=== PATIENT | female | born 1995 | race Caucasian/White ===

== ENCOUNTER 2019-03-30 12:50 | Emergency (ER) | payer SELFPAY ==
[2019-03-30] MEDS ORDERED: ONDANSETRON HCL INJ/PF 4 MG/2 ML SDV IV ONE (14:49)
[2019-03-30] MEDS ORDERED: NORMAL SALINE 1000 ML 1,000 ML IV ONE (14:50)
--- NOTE | 2019-03-30 14:51 | ER Document Report ---
ED Medical Screen (RME) - General Chief Complaint: Abdominal Pain Stated Complaint: UPPER ABDOMINAL PAIN/SHORTNESS OF BREATHE Time Seen by Provider: 03/30/19 14:48 Primary Care Provider: GILDARDO GIBBONS MD [Primary Care Provider] - Follow up as needed TRAVEL OUTSIDE OF THE [place] IN LAST 30 DAYS: No - HPI Notes: 03/30/19 14:50 Patient is a 24-year-old female with a history of lupus who presents complaint of nausea, vomiting, diarrhea, and epigastric/right upper quadrant abdominal pain over the past couple days. No fever, chest pain, shortness of breath. I have treated and performed a rapid initial assessment of this patient. A comprehensive ED assessment and evaluation of the patient, analysis of test results and completion of medical decision making process will be conducted by additional ED providers. PHYSICAL EXAMINATION: GENERAL: Well-appearing, well-nourished and in no acute distress. A&Ox4. Answers questions appropriately. Abd: Limited exam in triage, but abdomen is otherwise soft and tender to the epigastrium/right upper quadrant. - Related Data Allergies/Adverse Reactions: Sulfa (Sulfonamide Antibiotics) Allergy (Verified 03/30/19 14:49) Past Medical History - Social History Frequency of alcohol use: None Drug Abuse: None - Immunizations Hx Diphtheria, Pertussis, Tetanus Vaccination: Yes Physical Exam - Vital signs Vitals: Temp Pulse Resp BP Pulse Ox 98.9 F 106 H 16 116/68 100 03/30/19 13:59 03/30/19 13:59 03/30/19 13:59 03/30/19 13:59 03/30/19 13:59 Course - Vital Signs Vital signs: Temp Pulse Resp BP Pulse Ox 98.9 F 106 H 16 116/68 100 03/30/19 13:59 03/30/19 13:59 03/30/19 13:59 03/30/19 13:59 03/30/19 13:59 Doctor's Discharge - Discharge Referrals: GILDARDO GIBBONS MD [Primary Care Provider] - Follow up as needed
[2019-03-30 15:38] LABS: APPEARANCE,URINE SLIGHTLY-CLOUDY; BILIRUBIN,URINE NEGATIVE (NEGATIVE); COLOR,URINE YELLOW; GLUCOSE, URINE NEGATIVE (NEGATIVE); KETONES,URINE NEGATIVE (NEGATIVE); PROTEIN,URINE NEGATIVE (NEGATIVE); UROBILINOGEN,URINE NEGATIVE mg/dL (<2.0)
[2019-03-30 15:49] LABS: ABSOLUTE EOSINOPHILS # (AUTO) 0.1 10^3/uL (0.0-0.6); ABSOLUTE LYMPHOCYTES (AUTO) 1.4 10^3/uL (0.5-4.7); ABSOLUTE MONOCYTES (AUTO) 0.2 10^3/uL (0.1-1.4); ABSOLUTE NEUT (AUTO) 3.1 10^3/uL (1.7-8.2); BASOPHILS % (AUTO) 0.8 % (0-2); EOSINOPHILS % (AUTO) 2.2 % (0-6); HEMATOCRIT 42.5 % (36.0-47.0); HEMOGLOBIN 14.4 g/dL (12.0-15.5); LYMPHOCYTES % (AUTO) 27.7 % (13-45); MEAN CORPUSCULAR HEMOGLOBIN 30.7 pg (27.0-33.4); MEAN CORPUSCULAR VOLUME 90 fl (80-97); MONOCYTES % (AUTO) 5.1 % (3-13); PLATELET COUNT 263 10^3/uL (150-450); RED CELL DISTRIBUTION WIDTH 14.8 % (11.5-14.0); SEGMENTED NEUTROPHILS % (AUTO) 64.2 % (42-78); TOTAL CELLS COUNTED % (AUTO) 100 %; WHITE BLOOD COUNT 4.9 10^3/uL (4.0-10.5)
[2019-03-30 16:06] LABS: ALBUMIN 5.5 g/dL (3.5-5.0); ALKALINE PHOSPHATASE 43 U/L (38-126); ANION GAP 13 (5-19); ASPARTATE AMINO TRANSFERASE 23 U/L (14-36); BILIRUBIN,DIRECT 0.2 mg/dL (0.0-0.4); BILIRUBIN,TOTAL 0.3 mg/dL (0.2-1.3); BLOOD UREA NITROGEN 6 mg/dL (7-20); CALCIUM 10.5 mg/dL (8.4-10.2); CARBON DIOXIDE 24 mmol/L (22-30); CHLORIDE 104 mmol/L (98-107); GLUCOSE 111 mg/dL (75-110); POTASSIUM 4.4 mmol/L (3.6-5.0); TOTAL PROTEIN 8.7 g/dL (6.3-8.2)
--- NOTE | 2019-03-30 17:42 | ER Document Report ---
ED General - General Chief Complaint: Abdominal Pain Stated Complaint: UPPER ABDOMINAL PAIN/SHORTNESS OF BREATHE Time Seen by Provider: 03/30/19 14:48 Primary Care Provider: GILDARDO GIBBONS MD [Primary Care Provider] - Follow up as needed TRAVEL OUTSIDE OF THE [place] IN LAST 30 DAYS: No - HPI Notes: 24-year-old female with a chief complaint of epigastric discomfort radiating to the right flank present intermittently for about 1 months. Denies fever, chills, nausea, vomiting or dysuria. Eating and drinking normally. Normal bowel movements. Last menses normal 2 weeks ago. Patient takes no regular medications other than oral contraceptives. 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 No history of pregnancies. No major surgery. Denies use of drugs alcohol or tobacco. Denies any known history of hepatitis or gallstones. - Related Data Allergies/Adverse Reactions: Sulfa (Sulfonamide Antibiotics) Allergy (Verified 03/30/19 14:49) Past Medical History - General Information source: Patient - Social History Smoking Status: Former Smoker Frequency of alcohol use: None Drug Abuse: None Family History: Reviewed & Not Pertinent Patient has suicidal ideation: No Patient has homicidal ideation: No - Immunizations Hx Diphtheria, Pertussis, Tetanus Vaccination: Yes Review of Systems - Review of Systems Notes: Constitutional: Negative for fever. HENT: Negative for sore throat. Eyes: Negative for visual changes. Cardiovascular: Negative for chest pain. Respiratory: Negative for shortness of breath. Gastrointestinal: As per HPI. Genitourinary: Negative for dysuria. Musculoskeletal: As per HPI. Skin: Negative for rash. Neurological: Negative for headaches, weakness or numbness. 10 point ROS negative except as marked above and in HPI. Physical Exam - Vital signs Vitals: Temp Pulse Resp BP Pulse Ox 98.9 F 106 H 16 116/68 100 03/30/19 13:59 03/30/19 13:59 03/30/19 13:59 03/30/19 13:59 03/30/19 13:59 - Notes Notes: GENERAL: Well-developed well-nourished appearing in no acute distress. SKIN: Good turgor no rashes. HEAD: Normocephalic atraumatic. EYES: PERRLA. EOMI. Conjunctivae and sclerae clear. EARS: CANALS AND TMS CLEAR. NOSE: CLEAR. MOUTH: Moist mucosa. Good dentition. No stridor or edema. No drooling. NECK: Supple. No masses or thyromegaly. No adenopathy. Carotids 2+ without bruits. No JVD. BACK: Symmetrical without tenderness. CHEST: Respirations unlabored. Breath sounds clear and symmetrical. HEART: Regular rhythm. No murmur gallop or rub. ABDOMEN: Minimal epigastric tenderness on deep palpation. Soft without masses, organomegaly or rebound. Bowel sounds normally active. No bruits. GENITALIA: Deferred. EXTREMITIES: No edema. No calf tenderness. Cap refill less than 1.5 seconds. Dorsalis pedis and posterior tibial pulses 3+ and symmetrical. NEUROLOGICAL: GCS 15. Alert and oriented x3. Normal gait. Fluent speech. Cranial nerves II through XII intact. Sensorimotor and cerebellar normal. Normal tone. PSYCHIATRIC: Appropriate affect. Course - Re-evaluation Re-evalutation: 03/30/19 18:15 Urinalysis unremarkable. test is negative. Comprehensive metabolic profile and lipase are normal. White count and hemoglobin are normal. Patient had some mild epigastric tenderness and relatively normal exam otherwise. I am going to place her on some Pepcid and refer her for outpatient follow-up with her primary care provider. - Vital Signs Vital signs: Temp Pulse Resp BP Pulse Ox 98.9 F 106 H 16 116/68 100 03/30/19 13:59 03/30/19 13:59 03/30/19 13:59 03/30/19 13:59 03/30/19 13:59 - Laboratory Result Diagrams: 03/30/19 15:40 03/30/19 15:40 Laboratory results interpreted by me: 03/30/19 03/30/19 03/30/19 15:24 15:40 15:40 RDW 14.8 H BUN 6 L Glucose 111 H Calcium 10.5 H Total Protein 8.7 H Albumin 5.5 H Leukocyte Esterase Rfl TRACE H Discharge - Discharge Clinical Impression: Abdominal pain Qualifiers: Abdominal location: epigastric Qualified Code(s): R10.13 - Epigastric pain Condition: Stable Disposition: HOME, SELF-CARE Instructions: Abdominal Pain ([facility]) Additional Instructions: Return here as needed for new or worsening symptoms: Pain that is worsening or unimproved Uncontrolled vomiting High fever or shaking chills Overall worsening Prescriptions: Famotidine [Pepcid AC] 20 mg PO BID #20 tablet Referrals: GILDARDO GIBBONS MD [Primary Care Provider] - Follow up as needed
--- NOTE | 2019-03-30 17:45 | RADIOLOGY REPORT (SQ) ---
EXAM DESCRIPTION: U/S ABDOMEN LIMITED W/O DOP COMPLETED DATE/TIME: 03/30/2019 4:43 pm REASON FOR STUDY: epigastric/RUQ pain COMPARISON: None. TECHNIQUE: Dynamic and static grayscale images acquired of the abdomen and recorded on PACS. Additio kierra selected color Doppler and spectral images recorded. LIMITATIONS: None. FINDINGS: PANCREAS: No masses. The tail was obscured by gas. LIVER: No masses. Echotexture normal. LIVER VASCULATURE: Normal directional flow of the main portal vein and hepatic veins. GALLBLADDER: No stones. Normal wall thickness. No pericholecystic fluid. ULTRASOUND-DETECTED TAYLOR'S SIGN: Negative. INTRAHEPATIC DUCTS AND COMMON DUCT: CBD and intrahepatic ducts normal caliber. No filling defects. INFERIOR VENA CAVA: Normal flow. AORTA: No aneurysm. RIGHT KIDNEY: Normal size, 11.3 cm. Normal echogenicity. No solid or suspicious masses. No hydroneph rosis. No calcifications. PERITONEAL AND RIGHT PLEURAL SPACE: No ascites or effusions. OTHER: No other significant findings. IMPRESSION: NORMAL RIGHT UPPER QUADRANT ULTRASOUND. TECHNICAL DOCUMENTATION: JOB ID: [id number] 1969 [employer]- All Rights Reserved Reading location - IP/workstation name: [email or web address]
[2019-03-30 20:57] VITALS: BP 111/55
== END 2019-03-30 20:57 | disposition home or self-care (01) ==
LOC: ER 12:50
DX: R10.13 Epigastric pain (principal); R10.816 Epigastric abdominal tenderness; Z79.3 Long term (current) use of hormonal contraceptives; Z88.2 Allergy status to sulfonamides; Z87.891 Personal history of nicotine dependence
CPT/HCPCS: 99284; 96361; 96374; 36415; 87086; 83690; 85025; 81025; 80053; 81001; 76705; J2405; J7030

== ENCOUNTER 2019-04-01 18:20 | Emergency (ER) | payer SELFPAY ==
[2019-04-01 18:28] VITALS: BP 133/64
[2019-04-01] MEDS ORDERED: DIPHENHYDRAMINE HCL 50 MG/ML VIAL IV ONE (18:53)
[2019-04-01] MEDS ORDERED: NORMAL SALINE 500 ML IV ONE (18:53)
[2019-04-01] MEDS ORDERED: PROCHLORPERAZINE EDISYLATE INJ 10 MG/2 ML VIAL IV ONE (18:53)
--- NOTE | 2019-04-01 18:53 | ER Document Report ---
ED Medical Screen (RME) - General Chief Complaint: Headache Stated Complaint: HEADACHE Time Seen by Provider: 04/01/19 18:48 Primary Care Provider: GILDARDO GIBBONS MD [Primary Care Provider] - Follow up as needed TRAVEL OUTSIDE OF THE [place] IN LAST 30 DAYS: No - HPI Notes: 04/01/19 18:51 Patient is a 24-year-old female who presents complaining of a severe that started suddenly about 20 minutes ago. Patient states that this is a worse headache that she has had in her life. Patient states that the intensity did happen very quickly. She has light sensitivity and occasional nausea. Denies injury. No fever, neck pain, chest pain, shortness of breath. I have treated and performed a rapid initial assessment of this patient. A comprehensive ED assessment and evaluation of the patient, analysis of test results and completion of medical decision making process will be conducted by additional ED providers. Because patient states that this is worse taking her life and quick onset, I will get a CT scan to rule out subarachnoid hemorrhage as we are within the 6- hour window from initial onset. I will also order her some IV medicines. I will not order Toradol at this time until CT is read negative. PHYSICAL EXAMINATION: GENERAL: Well-appearing, well-nourished and in no acute distress. A&Ox4. Answers questions appropriately. Eyes: PERRLA, EOMI bilaterally. Neuro: NIH 0, GCS 15, cranial nerves grossly intact. Normal sensory/motor. - Related Data Allergies/Adverse Reactions: Sulfa (Sulfonamide Antibiotics) Allergy (Verified 04/01/19 18:47) Past Medical History - Past Medical History Cardiac Medical History: Denies: Hx Atrial Fibrillation, Hx Congestive Heart Failure, Hx Heart Attack, Hx Hypercholesterolemia, Hx Hypertension Pulmonary Medical History: Denies: Hx Asthma, Hx Bronchitis, Hx COPD, Hx Pneumonia, Hx Tuberculosis Neurological Medical History: Denies: Hx Migraine, Hx Seizures Endocrine Medical History: Denies: Hx Diabetes Mellitus Type 1, Hx Diabetes Mellitus Type 2 Renal/ Medical History: Denies: Hx End Stage Renal Disease, Hx Kidney Stones GI Medical History: Denies: Hx Gastroesophageal Reflux Disease, Hx Hiatal Hernia, Hx Ulcer Musculoskeltal Medical History: Denies Hx Arthritis Psychiatric Medical History: Denies: Hx Attention Deficit Hyperactivity Disorder, Hx Bipolar Disorder, Hx Depression, Hx Schizophrenia - Immunizations Hx Diphtheria, Pertussis, Tetanus Vaccination: Yes Physical Exam - Vital signs Vitals: Temp Pulse BP Pulse Ox 98.3 F 88 133/64 H 100 04/01/19 18:27 04/01/19 18:27 04/01/19 18:27 04/01/19 18:27 Course - Vital Signs Vital signs: Temp Pulse Resp BP Pulse Ox 98.3 F 88 133/64 H 100 04/01/19 18:27 04/01/19 18:27 04/01/19 18:27 04/01/19 18:27 Doctor's Discharge - Discharge Referrals: GILDARDO GIBBONS MD [Primary Care Provider] - Follow up as needed
== END 2019-04-01 19:19 | disposition left against medical advice (07) ==
LOC: ER 18:20
DX: R51 Headache (principal); Z88.2 Allergy status to sulfonamides
CPT/HCPCS: 99281

== ENCOUNTER 2019-04-20 22:12 | Emergency (ER) | payer SELFPAY ==
[2019-04-21] MEDS ORDERED: DOXYCYCLINE HYCLATE 100 MG TABLET PO ONE
[2019-04-21] MEDS ORDERED: CEPHALEXIN 500 MG CAPSULE PO ONE
--- NOTE | 2019-04-21 00:06 | ER Document Report ---
HPI - HPI Time Seen by Provider: 04/20/19 23:03 Pain Level: 5 Notes: 24-year-old female patient presenting to the emergency department chief complaint of scattered rash across her face, bilateral arms, chest, back, buttocks and legs. She reports that she uses heroin. She denies any recent meth use but reports history of meth use. She is concerned that she has a skin infection. - REPRODUCTIVE LMP: unknown Reproductive: DENIES: : Past Medical History - General Information source: Patient - Social History Smoking Status: Current Every Day Smoker Chew tobacco use (# tins/day): No Frequency of alcohol use: None Drug Abuse: Cocaine, Heroin Family History: Reviewed & Not Pertinent Patient has suicidal ideation: No Patient has homicidal ideation: No - Medical History Medical History: Negative - Past Medical History Cardiac Medical History: Denies: Hx Atrial Fibrillation, Hx Congestive Heart Failure, Hx Heart Attack, Hx Hypercholesterolemia, Hx Hypertension Pulmonary Medical History: Denies: Hx Asthma, Hx Bronchitis, Hx COPD, Hx Pneumonia, Hx Tuberculosis Neurological Medical History: Denies: Hx Migraine, Hx Seizures Endocrine Medical History: Denies: Hx Diabetes Mellitus Type 1, Hx Diabetes Mellitus Type 2 Renal/ Medical History: Denies: Hx End Stage Renal Disease, Hx Kidney Stones GI Medical History: Denies: Hx Gastroesophageal Reflux Disease, Hx Hiatal Hernia, Hx Ulcer Musculoskeletal Medical History: Denies Hx Arthritis Psychiatric Medical History: Denies: Hx Attention Deficit Hyperactivity Disorder, Hx Bipolar Disorder, Hx Depression, Hx Schizophrenia Surgical Hx: Negative - Immunizations Hx Diphtheria, Pertussis, Tetanus Vaccination: Yes Vertical Provider Document - CONSTITUTIONAL Notes: PHYSICAL EXAMINATION: GENERAL: Well-appearing, well-nourished and in no acute distress. HEAD: Atraumatic, normocephalic. EYES: Pupils equal round extraocular movements intact, conjunctiva are normal. ENT: Nares patent NECK: Normal range of motion LUNGS: No respiratory distress Musculoskeletal: Normal range of motion NEUROLOGICAL: Normal speech, normal gait. PSYCH: Normal mood, normal affect. SKIN: Red raised scattered rash across patient's bilateral arms, face and torso. Faint rash across patient's bilateral legs. Some areas of rash have central clearing with erythema surrounding suggesting early cellulitis. - INFECTION CONTROL TRAVEL OUTSIDE OF THE [place] IN LAST 30 DAYS: No Course - Re-evaluation Re-evalutation: Patient with likely early cellulitis due to rash. Patient is a self-reported drug user, this rash is likely secondary to picking. At the time of discharge patient now reporting that she wants treatment for possible STD exposure. Prophylactic STD medications ordered to include 2 g of Flagyl, 1 g of azithromycin and 250 mg of Rocephin. Patient encouraged to follow-up with the health department for further treatment. She is also is being started on antibiotics for her skin rash. - Vital Signs Vital signs: Temp Pulse Resp BP Pulse Ox 97.5 F 92 16 115/77 100 04/20/19 22:18 04/20/19 22:18 04/20/19 22:18 04/20/19 22:18 04/20/19 22:18 Discharge - Discharge Clinical Impression: Rash and nonspecific skin eruption, Bacterial skin infection Condition: Stable Disposition: HOME, SELF-CARE Additional Instructions: The rash to have appears to be a bacterial rash. Please start taking the antibiotics that I have prescribed. Please purchase an [id number] antibacterial/antimicrobial soap such as Dial antibacterial soap. Please wash with this twice daily. Clean all your clothes and linens. You need to have close follow-up with a primary care provider or a [employer] cashier. Phone numbers have been given to you below. Prescriptions: Doxycycline Hyclate 100 mg PO BID #14 capsule Cephalexin [Keflex] 500 mg PO QID #28 capsule Referrals: LILY CONNOLLY DO [ACTIVE STAFF] - Follow up as needed [facility] [Provider Group] - Follow up as needed
[2019-04-21] MEDS ORDERED: CEFTRIAXONE INJ 250 MG VIAL IM ONE (00:13)
[2019-04-21] MEDS ORDERED: LIDOCAINE 1% INJ-PF (10 MG/ML) 30 ML SDV IM ONE (00:13)
[2019-04-21] MEDS ORDERED: METRONIDAZOLE 500 MG TABLET PO ONE (00:14)
[2019-04-21] MEDS ORDERED: AZITHROMYCIN 250 MG TABLET PO ONE (00:14)
[2019-04-21 00:32] VITALS: BP 109/47
== END 2019-04-21 00:30 | disposition home or self-care (01) ==
LOC: ER 22:12
DX: R21 Rash and other nonspecific skin eruption (principal); L08.9 Local infection of the skin and subcutaneous tissue, unspecified; B96.89 Other specified bacterial agents as the cause of diseases classified elsewhere; F11.10 Opioid abuse, uncomplicated; F17.200 Nicotine dependence, unspecified, uncomplicated
CPT/HCPCS: 99282; 96372; J3490; J0696

== ENCOUNTER 2019-06-04 00:52 | Emergency (ER) | payer SELFPAY ==
--- NOTE | 2019-06-04 03:07 | ER Document Report ---
ED General - General Chief Complaint: Abscess Stated Complaint: SKIN PROBLEM AND ABSCESS ON SHOULDER Time Seen by Provider: 06/04/19 03:04 Primary Care Provider: MANUEL COTTER MD [ACTIVE STAFF] - Follow up as needed BENITEZ LI MD [ACTIVE STAFF] - Follow up as needed MACI PARIKH MD [ACTIVE STAFF] - Follow up as needed Mode of Arrival: Ambulatory Information source: Patient TRAVEL OUTSIDE OF THE [place] IN LAST 30 DAYS: No - HPI Onset: Other - over the last several days Onset/Duration: Gradual Quality of pain: Pressure, Throbbing Severity: Moderate Pain Level: 4 Associated symptoms: Other - diffuse skin infections/scabing Exacerbated by: Denies Relieved by: Denies Similar symptoms previously: Yes - with other skin abscesses Recently seen / treated by doctor: Yes - seen in this ER in Apr 2019 and given Doxy and Keflex to cover skin rosalinda Notes: 24 year old female with no significant PMH history except for recent microabscesses thought to be due to diffuse MRSA here for concern of an abscess on her right shoulder blade for the last several days. The patient says the area started off as a red raised area and has swollen and spread in size and has become very tender to palpation. The patient denies fevers, chills, sweats, nausea, vomiting. The patient was seen in this ER in April and she was given Doxy and Keflex for skin infections but she was never given Hibiclens. - Related Data Allergies/Adverse Reactions: Sulfa (Sulfonamide Antibiotics) Allergy (Verified 04/01/19 18:47) tree nut Allergy (Verified 04/20/19 23:12) Past Medical History - General Information source: Patient - Social History Smoking Status: Current Every Day Smoker Frequency of alcohol use: None Drug Abuse: None Lives with: Family Family History: Reviewed & Not Pertinent Patient has suicidal ideation: No Patient has homicidal ideation: No - Past Medical History Cardiac Medical History: Denies: Hx Atrial Fibrillation, Hx Congestive Heart Failure, Hx Heart Attack, Hx Hypercholesterolemia, Hx Hypertension Pulmonary Medical History: Denies: Hx Asthma, Hx Bronchitis, Hx COPD, Hx Pneumonia, Hx Tuberculosis Neurological Medical History: Denies: Hx Migraine, Hx Seizures Endocrine Medical History: Denies: Hx Diabetes Mellitus Type 1, Hx Diabetes Mellitus Type 2 Renal/ Medical History: Denies: Hx End Stage Renal Disease, Hx Kidney Stones GI Medical History: Denies: Hx Gastroesophageal Reflux Disease, Hx Hiatal Hernia, Hx Ulcer Musculoskeletal Medical History: Denies Hx Arthritis Psychiatric Medical History: Denies: Hx Attention Deficit Hyperactivity Disorder, Hx Bipolar Disorder, Hx Depression, Hx Schizophrenia - Immunizations Hx Diphtheria, Pertussis, Tetanus Vaccination: Yes Review of Systems - Review of Systems Constitutional: No symptoms reported EENT: No symptoms reported Cardiovascular: No symptoms reported Respiratory: No symptoms reported Gastrointestinal: No symptoms reported Genitourinary: No symptoms reported Female Genitourinary: No symptoms reported Musculoskeletal: No symptoms reported Skin: Rash, Other - tender, red raised, swollen area on right shoulder blade which seems to be spreading to her front Hematologic/Lymphatic: No symptoms reported Neurological/Psychological: No symptoms reported -: Yes All other systems reviewed and negative Physical Exam - Vital signs Vitals: Temp Pulse Resp BP Pulse Ox 98.5 F 107 H 16 126/69 H 99 06/04/19 01:12 06/04/19 01:12 06/04/19 01:12 06/04/19 01:12 06/04/19 01:12 - Notes Notes: GENERAL: Well-appearing, well-nourished and in no acute distress. HEAD: Atraumatic, normocephalic. EYES: Pupils equal round and reactive to light, extraocular movements intact, sclera anicteric, conjunctiva are normal. ENT: Nares patent, oropharynx clear without exudates. Moist mucous membranes. NECK: Normal range of motion, supple without lymphadenopathy or JVD. LUNGS: Breath sounds clear to auscultation bilaterally and equal. No wheezes rales or rhonchi. HEART: Regular rate and rhythm without murmurs, rubs or gallops. ABDOMEN: Soft, nontender, normoactive bowel sounds. No guarding, no rebound. No masses appreciated. EXTREMITIES: Normal range of motion, no pitting or edema. No clubbing or cyanosis. NEUROLOGICAL: Cranial nerves II through XII grossly intact. Normal speech, normal gait. PSYCH: Normal mood, normal affect. SKIN: Diffuse small sore through out body consistent with micro abscesses and scabbing. Right posterior shoulder with abscess (red, raised, fluctuant area) in area of shoulder blade (about circumference of a golf ball). Warm, Dry, normal turgor, no rashes or lesions noted. Course - Re-evaluation Re-evalutation: 06/04/19 03:48 The patient has diffuse microabscesses/skin infections all over her body. She has had a course of Doxy and Keflex in April. Today she has a large right shoulder blade abscess which was incised and drained and packed by me. Patient given a script for Clindamycin and Hibiclens and she was told to follow up with a PCP or Surgeon for packing removal and wound check in 3 days. - Vital Signs Vital signs: Temp Pulse Resp BP Pulse Ox 98.5 F 107 H 16 126/69 H 99 06/04/19 01:12 06/04/19 01:12 06/04/19 01:12 06/04/19 01:12 06/04/19 01:12 - Laboratory Result Diagrams: 06/04/19 02:53 06/04/19 02:53 Laboratory results interpreted by me: 06/04/19 06/04/19 02:53 02:53 RBC 3.50 L Hgb 10.6 L Hct 31.1 L RDW 14.8 H Potassium 3.1 L BUN 6 L Glucose 131 H Total Bilirubin 0.1 L Total Protein 6.2 L Albumin 3.3 L Procedures - Incision and Drainage Right Upper Shoulder Blade Area Type: Simple Anesthetic type: 1% Lidocaine w/epi mL's of anesthetic: 10 Blade size: 11 I&D procedure: Chlorprep applied, Iodoform packing placed Incision Method: Incision made by scalpel Discharge - Discharge Clinical Impression: Abscess Condition: Stable Disposition: HOME, SELF-CARE Instructions: Abscess ([facility]), Post Incision and Drainage Additional Instructions: Take Clindamycin (oral antibiotic) as prescribed. Use the antiseptic skin solution every day for a week. Follow up with a primary care doctor [facility] for a wound check and packing removal in 2-3 days. Use Tylenol and Motrin for any pain. Prescriptions: Chlorhexidine Gluconate [Betasept Liquid] 1 applic TP DAILY PRN #1 bottle PRN Reason: Clindamycin HCl [Cleocin 150 mg Capsule] 450 mg PO TID 7 Days #63 capsule Referrals: MACI PARIKH MD [ACTIVE STAFF] - Follow up as needed BENITEZ LI MD [ACTIVE STAFF] - Follow up as needed MANUEL COTTER MD [ACTIVE STAFF] - Follow up as needed
[2019-06-04 03:09] LABS: ABSOLUTE BASOPHILS # (AUTO) 0.1 10^3/uL (0.0-0.2); ABSOLUTE EOSINOPHILS # (AUTO) 0.2 10^3/uL (0.0-0.6); ABSOLUTE LYMPHOCYTES (AUTO) 1.8 10^3/uL (0.5-4.7); ABSOLUTE MONOCYTES (AUTO) 0.8 10^3/uL (0.1-1.4); ABSOLUTE NEUT (AUTO) 5.8 10^3/uL (1.7-8.2); BASOPHILS % (AUTO) 0.6 % (0-2); EOSINOPHILS % (AUTO) 2.7 % (0-6); HEMATOCRIT 31.1 % (36.0-47.0); HEMOGLOBIN 10.6 g/dL (12.0-15.5); LYMPHOCYTES % (AUTO) 20.4 % (13-45); MEAN CORPUSCULAR HEMOGLOBIN 30.2 pg (27.0-33.4); MEAN CORPUSCULAR HGB CONC 33.9 g/dL (32.0-36.0); MEAN CORPUSCULAR VOLUME 89 fl (80-97); PLATELET COUNT 170 10^3/uL (150-450); RED CELL DISTRIBUTION WIDTH 14.8 % (11.5-14.0); SEGMENTED NEUTROPHILS % (AUTO) 67.3 % (42-78); TOTAL CELLS COUNTED % (AUTO) 100 %; WHITE BLOOD COUNT 8.7 10^3/uL (4.0-10.5)
[2019-06-04] MEDS ORDERED: LIDOCAINE 1.5%/EPINEPHRINE INJ-PF 30 ML SDV INJ ONE (03:11)
[2019-06-04] MEDS ORDERED: LIDOCAINE 1%/EPINEPHRINE INJ 20 ML VIAL ONE (03:14)
[2019-06-04 03:22] LABS: ALBUMIN 3.3 g/dL (3.5-5.0); ALKALINE PHOSPHATASE 50 U/L (38-126); ANION GAP 8 (5-19); ASPARTATE AMINO TRANSFERASE 24 U/L (14-36); BILIRUBIN,TOTAL 0.1 mg/dL (0.2-1.3); BLOOD UREA NITROGEN 6 mg/dL (7-20); CALCIUM 8.4 mg/dL (8.4-10.2); CARBON DIOXIDE 27 mmol/L (22-30); CHLORIDE 104 mmol/L (98-107); GLUCOSE 131 mg/dL (75-110); POTASSIUM 3.1 mmol/L (3.6-5.0); TOTAL PROTEIN 6.2 g/dL (6.3-8.2)
[2019-06-04] MEDS ORDERED: LIDOCAINE 1%/EPINEPHRINE INJ 20 ML VIAL INJ ONE (03:34)
[2019-06-04 04:03] VITALS: BP 117/71
== END 2019-06-04 04:06 | disposition home or self-care (01) ==
LOC: ER 00:52
DX: L02.413 Cutaneous abscess of right upper limb (principal); L02.818 Cutaneous abscess of other sites; F17.200 Nicotine dependence, unspecified, uncomplicated; Z88.2 Allergy status to sulfonamides
CPT/HCPCS: 99283; 36415; 85025; 80053; 10060; J3490

== ENCOUNTER 2019-06-07 16:24 | Emergency (ER) | payer SELFPAY ==
[2019-06-07 16:29] VITALS: BP 137/73
--- NOTE | 2019-06-07 16:52 | ER Document Report ---
ED Suture/Wound Recheck - General Chief Complaint: Abscess Recheck Stated Complaint: ABSCESS/RECHECK Time Seen by Provider: 06/07/19 16:28 Mode of Arrival: Ambulatory Information source: Patient Notes: 24-year-old female presented to ED for recheck of abscess to the right shoulder blade area. She had an I&D done Tuesday morning Tuesday night. She had a large packing in the area which was removed today. It was irrigated with saline and then lidocaine. Packing was replaced. Patient was instructed to complete her antibiotic regimen and to return in 2 days to have the packing removed reas sessed and possibly replaced. TRAVEL OUTSIDE OF THE [place] IN LAST 30 DAYS: No - HPI Previous ED treatment: I&D of abscess Antibiotics given previously: Prescription Quality of pain: Achy Severity: Moderate Pain Level: 3 Symptoms since procedure: Pain, Redness Exacerbated by: Movement Relieved by: Standing - Related Data Allergies/Adverse Reactions: Sulfa (Sulfonamide Antibiotics) Allergy (Verified 06/07/19 16:33) tree nut Allergy (Verified 06/07/19 16:33) Home Medications: atb Past Medical History - General Information source: Patient - Social History Smoking Status: Current Every Day Smoker Cigarette use (# per day): Yes - Half pack a day Chew tobacco use (# tins/day): No Smoking Education Provided: Yes Frequency of alcohol use: None Drug Abuse: None Lives with: Friend Family History: Reviewed & Not Pertinent Patient has suicidal ideation: No Patient has homicidal ideation: No - Past Medical History Cardiac Medical History: Reports: None Pulmonary Medical History: Reports: None Denies: Hx Asthma, Hx Bronchitis, Hx COPD, Hx Pneumonia, Hx Tuberculosis EENT Medical History: Reports: None Neurological Medical History: Reports: None Endocrine Medical History: Reports: None Renal/ Medical History: Reports: None Malignancy Medical History: Reports: None GI Medical History: Reports: None Musculoskeletal Medical History: Reports Hx Systemic Lupus Erythematosus 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 Psychiatric Medical History: Reports: None Traumatic Medical History: Reports: None Infectious Medical History: Reports: None Surgical Hx: Negative Past Surgical History: Reports: None - Immunizations Hx Diphtheria, Pertussis, Tetanus Vaccination: Yes Review of Systems - Review of Systems Constitutional: No symptoms reported EENT: No symptoms reported Cardiovascular: No symptoms reported Respiratory: No symptoms reported Gastrointestinal: No symptoms reported Genitourinary: No symptoms reported Female Genitourinary: No symptoms reported Musculoskeletal: No symptoms reported Skin: Other - Recheck of abscess Hematologic/Lymphatic: No symptoms reported Neurological/Psychological: No symptoms reported -: Yes All other systems reviewed and negative Physical Exam - Vital signs Vitals: Temp Pulse Resp BP Pulse Ox 97.7 F 96 18 137/73 H 100 06/07/19 16:29 06/07/19 16:29 06/07/19 16:06/07/19 16:06/07/19 16:29 Interpretation: Normal - General General appearance: Appears well, Alert - HEENT Head: Normocephalic, Atraumatic Eyes: Normal Pupils: PERRL - Respiratory Respiratory status: No respiratory distress Chest status: Nontender Breath sounds: Normal Chest palpation: Normal - Cardiovascular Rhythm: Regular Heart sounds: Normal auscultation Murmur: No - Abdominal Inspection: Normal Distension: No distension Bowel sounds: Normal Tenderness: Nontender Organomegaly: No organomegaly - Back Back: Normal, Nontender - Extremities General upper extremity: Normal inspection, Nontender, Normal color, Normal ROM, Normal temperature General lower extremity: Normal inspection, Nontender, Normal color, Normal ROM, Normal temperature, Normal weight bearing. No: Cole's sign - Neurological Neuro grossly intact: Yes Cognition: Normal Orientation: AAOx4 Andie Coma Scale Eye Opening: Spontaneous [place] Coma Scale Verbal: Oriented [place] Coma Scale Motor: Obeys Commands [place] Coma Scale Total: 15 Speech: Normal Motor strength normal: LUE, RUE, LLE, RLE Sensory: Normal - Psychological Associated symptoms: Normal affect, Normal mood - Skin Skin Temperature: Warm Skin Moisture: Dry Skin Color: Normal Skin irregularity: Abscess - Draining Location of irregularity: Other - Right scapular area Irregularity with: Tenderness. negative: Swelling, Warmth Course - Vital Signs Vital signs: Temp Pulse Resp BP Pulse Ox 97.7 F 96 18 137/73 H 100 06/07/19 16:29 06/07/19 16:29 06/07/19 16:29 06/07/19 16:29 06/07/19 16:29 Discharge - Discharge Clinical Impression: Abscess re-check Condition: Stable Disposition: HOME, SELF-CARE Additional Instructions: You were seen today for reexamination of your abscess to the right shoulder blade area. Packing was removed from the abscess. Wound was irrigated and repacked. Is continue to take your antibiotics until they are completed. Return in 48 hours to have this wound reexamined and possibly repacked. Acetaminophen Acetaminophen may be taken for pain relief or fever control. It's much safer than aspirin, offering a wider range of "safe" dosages. It is safe during . Some brand names are Tylenol, Panadol, Datril, Anacin 3, Tempra, and Liquiprin. Acetaminophen can be repeated every four hours. The following are maximum recommended dosages: WEIGHT Dose Drops Elixir Chewable(80mg) (LBS.) drprs=droppers tsp=teaspoon 6 40 mg .4 ml (1/2) 6-11 80 mg .8 ml (full) 1/2 tsp 1 tab 12-16 120 mg 1 1/2 drprs 3/4 tsp 1 1/2 tabs 17-23 160 mg 2 drprs 1 tsp 2 tabs 24-30 240 mg 3 drprs 1 1/2 tsp 3 tabs 30-35 320 mg 2 tsp 4 tabs 36-41 360 mg 2 1/4 tsp 4 1/2 tabs 42-47 400 mg 2 1/2 tsp 5 tabs 48-53 480 mg 3 tsp 6 tabs 54-59 520 mg 3 1/4 tsp 6 1/2 tabs 60-64 560 mg 3 1/2 tsp 7 tabs 65-70 600 mg 3 3/4 tsp 7 1/2 tabs 71-76 640 mg 4 tsp 8 tabs 77-82 720 mg 4 1/2 tsp 9 tabs 83-88 800 mg 5 tsp 10 tabs >89 pounds or adults 650 mg to 900 mg Acetaminophen can be repeated every four hours. Maximum daily dose not to exceed 4000 mg. These maximum recommended dosages are slightly higher than the dosages wri tten on the product container, but these dosages are very safe and well below the toxic dosage for acetaminophen. Ibuprofen Ibuprofen is an excellent, safe drug for pain control. In addition, it has potent antiinflammatory effects which are beneficial, especially in the treatment of injuries, arthritis, or tendonitis. It's best to take ibuprofen with food. Persons with ulcer disease or allergy to aspirin should notify their physician of this before taking ibuprofen. Take the medication exactly as prescribed. Don't take additional doses unless instructed to do so by your doctor. If you develop wheezing, shortness of breath, hives, faintness, stomach pain, vomiting, or dark black stools, return for re-evaluation at once. FOLLOW-UP CARE: If you have been referred to a physician for follow-up care, call the physicians office for an appointment as you were instructed or within the next two days. If you experience worsening or a significant change in your symptoms, notify the physician immediately or return to the Emergency Department at any time for re-evaluation. Forms: Smoking Cessation Education, Elevated Blood Pressure
== END 2019-06-07 16:58 | disposition home or self-care (01) ==
LOC: ER 16:24
DX: L02.413 Cutaneous abscess of right upper limb (principal); Z48.01 Encounter for change or removal of surgical wound dressing; F17.210 Nicotine dependence, cigarettes, uncomplicated; Z88.2 Allergy status to sulfonamides; Z91.018 Allergy to other foods
CPT/HCPCS: 99282

== ENCOUNTER 2019-06-12 14:59 | Emergency (ER) | payer SELFPAY ==
[2019-06-12 15:10] VITALS: BP 111/64
--- NOTE | 2019-06-12 15:44 | ER Document Report ---
ED Suture/Wound Recheck - General Chief Complaint: Wound Recheck Stated Complaint: WOUND RECHECK Time Seen by Provider: 06/12/19 15:35 Primary Care Provider: [facility] [Provider Group] - Follow up as needed Mode of Arrival: Ambulatory Notes: 24-year-old female presented to ED for recheck to the abscess to her right shoulder. She needed the packing removed today. Packing has been removed and the wound has been irrigated. Patient does understand she needs to irrigate the wound as instructed. Patient verbalized understanding and agreement with this treatment plan. TRAVEL OUTSIDE OF THE [place] IN LAST 30 DAYS: No - HPI Previous ED treatment: I&D of abscess Antibiotics given previously: Prescription Quality of pain: No pain Severity: None Pain Level: Denies Symptoms since procedure: No complaints Exacerbated by: Denies Relieved by: Denies - Related Data Allergies/Adverse Reactions: Sulfa (Sulfonamide Antibiotics) Allergy (Verified 06/12/19 15:34) tree nut Allergy (Verified 06/12/19 15:34) Past Medical History - General Information source: Patient - Social History Smoking Status: Current Every Day Smoker Cigarette use (# per day): Yes - 5 cigarettes a day Smoking Education Provided: Yes - 4 minutes Frequency of alcohol use: None Drug Abuse: None Lives with: Family Family History: Reviewed & Not Pertinent Patient has suicidal ideation: No Patient has homicidal ideation: No - Past Medical History Cardiac Medical History: Reports: None Pulmonary Medical History: Reports: None EENT Medical History: Reports: None Neurological Medical History: Reports: None Endocrine Medical History: Reports: None Renal/ Medical History: Reports: None Malignancy Medical History: Reports: None GI Medical History: Reports: None Musculoskeletal Medical History: Reports Hx Systemic Lupus Erythematosus Skin Medical History: Reports None Psychiatric Medical History: Reports: None Traumatic Medical History: Reports: None Infectious Medical History: Reports: None Surgical Hx: Negative Past Surgical History: Reports: None - Immunizations Hx Diphtheria, Pertussis, Tetanus Vaccination: Yes Review of Systems - Review of Systems Constitutional: No symptoms reported EENT: No symptoms reported Cardiovascular: No symptoms reported Respiratory: No symptoms reported Gastrointestinal: No symptoms reported Genitourinary: No symptoms reported Female Genitourinary: No symptoms reported Musculoskeletal: No symptoms reported Skin: Other - Check abscess is healing well Hematologic/Lymphatic: No symptoms reported Neurological/Psychological: No symptoms reported -: Yes All other systems reviewed and negative Physical Exam - Vital signs Vitals: Temp Pulse Resp BP Pulse Ox 98.6 F 107 H 16 111/64 97 06/12/19 15:09 06/12/19 15:06/12/19 15:06/12/19 15:09 06/12/19 15:09 Interpretation: Normal - General General appearance: Appears well, Alert - HEENT Head: Normocephalic, Atraumatic Eyes: Normal Pupils: PERRL - Respiratory Respiratory status: No respiratory distress Chest status: Nontender Breath sounds: Normal Chest palpation: Normal - Cardiovascular Rhythm: Regular Heart sounds: Normal auscultation Murmur: No - Abdominal Inspection: Normal Distension: No distension Bowel sounds: Normal Tenderness: Nontender Organomegaly: No organomegaly - Back Back: Normal, Nontender - Extremities General upper extremity: Normal inspection, Nontender, Normal color, Normal ROM, Normal temperature General lower extremity: Normal inspection, Nontender, Normal color, Normal ROM, Normal temperature, Normal weight bearing. No: Cole's sign - Neurological Neuro grossly intact: Yes Cognition: Normal Orientation: AAOx4 Andie Coma Scale Eye Opening: Spontaneous [place] Coma Scale Verbal: Oriented [place] Coma Scale Motor: Obeys Commands [place]ie Coma Scale Total: 15 Speech: Normal Motor strength normal: LUE, RUE, LLE, RLE Sensory: Normal - Psychological Associated symptoms: Normal affect, Normal mood - Skin Skin Temperature: Warm Skin Moisture: Dry Skin Color: Normal Skin irregularity: Abscess - Healing well Location of irregularity: Other - Scapular area on the right Irregularity with: negative: Swelling, Tenderness, Warmth Course - Vital Signs Vital signs: Temp Pulse Resp BP Pulse Ox 98.6 F 107 H 16 111/64 97 06/12/19 15:09 06/12/19 15:09 06/12/19 15:06/12/19 15:06/12/19 15:09 Discharge - Discharge Clinical Impression: Abscess re-check Condition: Stable Disposition: HOME, SELF-CARE Additional Instructions: You were seen today for recheck on your abscess. Please take a shower twice a day and have someone irrigate the wound twice a day for the next 2 days. After that please be sure that you rinse this area well after taking a shower or washing your hair so that this is the last thing rinsed. Acetaminophen Acetaminophen may be taken for pain relief or fever control. It's much safer than aspirin, offering a wider range of "safe" dosages. It is safe during . Some brand names are Tylenol, Panadol, Datril, Anacin 3, Tempra, and Liquiprin. Acetaminophen can be repeated every four hours. The following are maximum recommended dosages: WEIGHT Dose Drops Elixir Chewable(80mg) (LBS.) drprs=droppers tsp=teaspoon 6 40 mg .4 ml (1/2) 6-11 80 mg .8 ml (full) 1/2 tsp 1 tab 12-16 120 mg 1 1/2 drprs 3/4 tsp 1 1/2 tabs 17-23 160 mg 2 drprs 1 tsp 2 tabs 24-30 240 mg 3 drprs 1 1/2 tsp 3 tabs 30-35 320 mg 2 tsp 4 tabs 36-41 360 mg 2 1/4 tsp 4 1 /2 tabs 42-47 400 mg 2 1/2 tsp 5 tabs 48-53 480 mg 3 tsp 6 tabs 54-59 520 mg 3 1/4 tsp 6 1/2 tabs 60-64 560 mg 3 1/2 tsp 7 tabs 65-70 600 mg 3 3/4 tsp 7 1/2 tabs 71-76 640 mg 4 tsp 8 tabs 77-82 720 mg 4 1/2 tsp 9 tabs 83-88 800 mg 5 tsp 10 tabs >89 pounds or adults 650 mg to 900 mg Acetaminophen can be repeated every four hours. Maximum daily dose not to exceed 4000 mg. These maximum recommended dosages are slightly higher than the dosages written on the product container, but these dosages are very safe and well below the toxic dosage for acetaminophen. Ibuprofen Ibuprofen is an excellent, safe drug for pain control. In addition, it has potent antiinflammatory effects which are beneficial, especially in the treatment of injuries, arthritis, or tendonitis. It's best to take ibuprofen with food. Persons with ulcer disease or allergy to aspirin should notify their physician of this before taking ibuprofen. Take the medication exactly as prescribed. Don't take additional doses unless instructed to do so by your doctor. If you develop wheezing, shortness of breath, hives, faintness, stomach pain, vomiting, or dark black stools, return for re-evaluation at once. FOLLOW-UP CARE: If you have been referred to a physician for follow-up care, call the physicians office for an appointment as you were instructed or within the next two days. If you experience worsening or a significant change in your symptoms, notify the physician immediately or return to the Emergency Department at any time for re-evaluation. Forms: Smoking Cessation Education Referrals: [facility] [Provider Group] - Follow up as needed
== END 2019-06-12 15:39 | disposition home or self-care (01) ==
LOC: ER 14:59
DX: L02.413 Cutaneous abscess of right upper limb (principal); Z48.01 Encounter for change or removal of surgical wound dressing; F17.210 Nicotine dependence, cigarettes, uncomplicated; Z71.6 Tobacco abuse counseling; Z88.2 Allergy status to sulfonamides; Z91.018 Allergy to other foods
CPT/HCPCS: 99282; 99406